=== PATIENT | male | born 2000 | race Caucasian/White ===

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

== ENCOUNTER 2018-09-30 23:29 | Emergency (ER) | payer MEDICAID ==
[~2018-09-30] VITALS: Ht 188 cm; Wt 81.2 kg
[2018-09-30 23:36] VITALS: Ht 188 cm; Wt 81.2 kg
[2018-10-01 02:37] LABS: BASOPHIL % 0.8 % (0-2); PLATELET COUNT 204 x10^3mcL (130-400); RED CELL DISTRIBUTION WIDTH 14.2 % (11.5-14.5)
[2018-10-01 03:36] VITALS: BP 116/78
== END 2018-10-01 03:36 | disposition home or self-care (01) ==
LOC: ED 23:29
PROVIDERS: Emergency Medicine
DX: S80.11XA Contusion of right lower leg, initial encounter (principal); X58.XXXA Exposure to other specified factors, initial encounter; Y93.89 Activity, other specified; Y92.89 Other specified places as the place of occurrence of the external cause; Y99.8 Other external cause status
CPT/HCPCS: 36415